=== PATIENT | female | born 1975 | race Caucasian/White ===

== ENCOUNTER 2020-11-18 11:12 | Outpatient (REF) | payer BC, SELFPAY | END 2020-11-18 11:13 | disposition home or self-care (01) | LOC: HO.LAB 11:12 | PROVIDERS: Visit Provider Internal Medicine | DX: Z20.828 Contact with and (suspected) exposure to other viral communicable diseases (principal) | CPT/HCPCS: C9803; U0003 ==

== ENCOUNTER 2023-01-01 19:02 | Emergency (ER) | payer BC, SELFPAY ==
[2023-01-01 19:13] VITALS: BP 141/81; PULSE 103; O2SAT 100
[2023-01-01 19:51] VITALS: BP 150/85; PULSE 105; RESP 18; TEMP 37; O2SAT 100; BMI 23.0
--- NOTE | 2023-01-01 19:52 | ED.GENADULT ---
HPI - General Adult General Chief complaint: Nausea/Vomiting/Diarrhea <Erendira Vazquez CNP - Last Filed: 01/01/23 19:59> Stated complaint: NAUSEA/VOMITING PER EMS <Erendira Vazquez CNP - Last Filed: 01/01/23 19:59> Time Seen by Provider: 01/01/23 22:23 <Erendira Vazquez CNP - Last Filed: 01/01/23 19:59> Source: patient, RN notes reviewed and other <Leopoldo Tran - Last Filed: 01/01/23 22:41> Mode of arrival: EMS <Leopoldo Tran - Last Filed: 01/01/23 22:41> Limitations: no limitations <Leopoldo Tran - Last Filed: 01/01/23 22:41> History of Present Illness HPI narrative: 47-year-old female past medical history significant for type 1 diabetes presents for evaluation of nausea vomiting weakness. Patient reports that she would not eat last night had a couple of drinks. She was not able to eat tacos that she ordered because they did not agree with me. She reports that she woke this morning was vomiting all day and could not tolerate any oral intake. She checked a urine test strip and was found to have too many ketones. at this time she sought medical care and called the ambulance she received IV fluids as well as antiemetic and round and she reports feeling much better on arrival the patient reports while sitting in the ER waiting room she has been able to tolerate 2 full Gatorade and feels much better she has no complaints at this time and denies any pain no fevers, chills <Leopoldo Tran - Last Filed: 01/01/23 22:41> Related Data Allergies/adverse reactions: Allergies Allergy/AdvReac Type Severity Reaction Status Date / Time No Known Allergies Allergy Unverified 01/01/23 19:56 [No Known Allergies*] <Erendira Vazquez CNP - Last Filed: 01/01/23 19:59> Review of Systems Constitutional: Constitutional: Reports as per HPI, Denies chills and Denies fatigue <Leopoldo Tran - Last Filed: 01/01/23 22:41> ENT: Denies sore throat <Leopoldo Tran - Last Filed: 01/01/23 22:41> Cardiovascular: Cardiovascular: Denies chest pain <Leopoldo Tran - Last Filed: 01/01/23 22:41> Respiratory: Respiratory: Denies cough <Leopoldo Perezy - Last Filed: 01/01/23 22:41> Gastrointestinal: Gastrointestinal: Denies constipation, Reports dyspepsia, Denies diarrhea, Reports nausea, Reports vomiting and Denies hematemesis <Leopoldo Perezy - Last Filed: 01/01/23 22:41> Genitourinary: Genitourinary: Denies dysuria <Leopoldo Tran - Last Filed: 01/01/23 22:41> Musculoskeletal: Musculoskeletal: Denies back pain, Denies myalgias and Denies arthralgias <Leopoldo Tran - Last Filed: 01/01/23 22:41> Endocrine: Endocrine: Denies fatigue <Leopoldo Tran - Last Filed: 01/01/23 22:41> [facility] Social History Social History: Social History Advance Directives: No Advance Directives Information Provided: Yes <Erendira Vazquez CNP - Last Filed: 01/01/23 19:59> Physical Exam ED Vital Signs: Vital Signs - 24 hr 01/01/23 19:51 Temperature 98.6 F Pulse Rate 105 H Respiratory Rate 18 Blood Pressure 150/85 H Pulse Oximetry 100 Oxygen Delivery Method Room Air BMI result Body Mass Index 23.0 <Erendira Vazquez STRIPPING MACHINE OPERATOR - Last Filed: 01/01/23 19:59> Vital Signs - 24 hr 01/01/23 19:51 Temperature 98.6 F Pulse Rate 105 H Respiratory Rate 18 Blood Pressure 150/85 H Pulse Oximetry 100 Oxygen Delivery Method Room Air BMI result Body Mass Index 23.0 <Leopoldo Tran - Last Filed: 01/01/23 22:41> Const General: cooperative, healthy appearing, comfortable, no acute distress, alert, awake and Physically active <Leopoldo Tran - Last Filed: 01/01/23 22:41> Nutritional Appearance: thin <Leopoldo Tran - Last Filed: 01/01/23 22:41> Orientation/consciousness: patient oriented x3 <Leopoldo Tran - Last Filed: 01/01/23 22:41> Limitations: no limitations <Leopoldo O Last Filed: 01/01/23 22:41> HENTX Head: Yes normocephalic and Yes atraumatic <Leopoldo Last Filed: 01/01/23 22:41> Face and sinus: Yes face symmetric <Leopoldo Last Filed: 01/01/23 22:41> Mouth: Normal oral and palatal mucosa present and tongue normal < Last Filed: 01/01/23 22:41> Teeth and gingiva: dentition normal <Leopoldo Last Filed: 01/01/23 22:41> Throat: Yes posterior oropharynx normal ( without erythema, tonsillar exudates or edema), No peritonsillar mass, No uvula laterally displaced and No uvular edema <Leopoldo Last Filed: 01/01/23 22:41> Neck Neck: Yes normal visual inspection, Yes full ROM, No no meningeal signs, Yes supple and No lymphadenopathy <Leopoldo Last Filed: 01/01/23 22:41> Chest Chest palpation & inspection: normal inspection of the chest, normal palpation of entire chest wall and no crepitus <Leopoldo Last Filed: 01/01/23 22:41> Resp Effort & Inspection: normal respiratory effort and able to speak in complete sentences <Leopoldo Last Filed: 01/01/23 22:41> Auscultation: clear to auscultation bilaterally <Leopoldo Last Filed: 01/01/23 22:41> Cardio Rate: regular rate <Leopoldo Last Filed: 01/01/23 22:41> Rhythm: regular rhythm < Last Filed: 01/01/23 22:41> GI Inspection: Yes normal to inspection and No distended <Leopoldo Last Filed: 01/01/23 22:41> Palpation (GI): Soft to palpation, nontender and no guarding < Last Filed: 01/01/23 22:41> Auscultation: normoactive bowel sounds <Leopoldo Tran - Last Filed: 01/01/23 22:41> Skin General skin exam: no rashes or lesions noted <Leopoldo Tran - Last Filed: 01/01/23 22:41> Neuro General: patient oriented x3 and No no meningeal signs <Leopoldo Tran - Last Filed: 01/01/23 22:41> Course Course Course Narrative: This is an RME: Additional HPI, ROS, PE not included below will be deferred to primary provider. Patient is a 47-year-old female presents to emergency department via EMS. She does endorse drinking alcohol last night, oral this morning feeling all right. Persistent nausea and vomiting all throughout today and dizziness. Reports that she tested her urine for ketones at home which was positive. She is a type 1 diabetic with insulin pump, basal rate/bolus rate based on continuous glucose monitoring. Earlier today glucose around 120s, currently around 200. Denies fevers, chest pain, shortness of breath, difficulty breathing, abdominal pain, urinary frequency, increased hunger or thirst. <Erendira Vazquez CNP - Last Filed: 01/01/23 19:59> Medications Administered Discontinued Medications Generic Name Dose Route Start Last Admin Trade Name Freq PRN Reason Stop Dose Admin Ondansetron HCl 4 mg 01/01/23 19:56 01/01/23 20:22 Ondansetron Odt 4 Mg Tab.Rapdis TRANSLINGU 01/01/23 19:57 4 mg ONCE ONE Administration <Erendira Vazquez CNP - Last Filed: 01/01/23 19:59> Medications Administered Discontinued Medications Generic Name Dose Route Start Last Admin Trade Name Freq PRN Reason Stop Dose Admin Ondansetron HCl 4 mg 01/01/23 19:56 01/01/23 20:22 Ondansetron Odt 4 Mg Tab.Rapdis TRANSLINGU 01/01/23 19:57 4 mg ONCE ONE Administration <Leopoldo Tran - Last Filed: 01/01/23 22:41> Medical Decision Making Medical Decision Making MDM Narrative: this is a 47-year-old female who woke up vomiting. Due to her history of type 1 diabetes she checked her urine for ketones and found to be positive. In the emergency room her vital signs are stable, she is mildly hypertensive at 142/85. No source of infection. Viral panel negative. She has no leukocytosis, no evidence of DKA as her anion gap is normal. blood sugar is only 156, electrolytes are within normal limits. Given the patient is well appearing, no longer symptomatic, she is stable for discharge at this time. <Leopoldo Tran - Last Filed: 01/01/23 22:41> Differential Diagnosis Differential Diagnoses: The differential diagnosis associated with the presentation includes ( DKA, starvation ketosis, dehydration, WILNER, hyperglycemia) <Leopoldo Tran - Last Filed: 01/01/23 22:41> Nausea and vomiting, resolved <Leopoldo Tran - Last Filed: 01/01/23 22:41> Lab Data MDM Lab Attestation statement: I reviewed the patient's lab results. <Leopoldo Tran - Last Filed: 01/01/23 22:41> Result Diagrams: 01/01/23 20:16 01/01/23 20:16 <Erendira Vazquez STRIPPING MACHINE OPERATOR - Last Filed: 01/01/23 19:59> Labs: Lab Results 01/01/23 01/01/23 01/01/23 Range/Units 20:12 20:12 20:16 WBC 8.8 (4.8-10.8) X10*3/uL RBC 4.14 L (4.20-5.50) X10*6/uL Hgb 13.1 (12.0-16.0) g/dl Hct 38.6 (37.0-47.0) % MCV 93.2 (80.0-98.0) fL MCH 31.6 (27.0-33.0) pg MCHC 33.9 (31.0-35.0) g/dl RDW 12.3 (11.0-16.0) % Plt Count 308 (160-400) X10*3/uL MPV 10.1 (9.4-12.3) fL Immature Gran % (Auto) 0.5 H (0.0-0.4) % Neut % (Auto) 78.7 H (45-73) % Lymph % (Auto) 12.5 L (20-40) % [place] % (Auto) 7.4 (2-11) % Eos % (Auto) 0.1 (0-4) % Baso % (Auto) 0.8 (0-2) % Lymph # (Auto) 1.1 L (1.2-4.9) X10*3/uL [place] # (Auto) 0.7 (0.1-1.2) X10*3/uL Eos # (Auto) 0.0 (0.0-0.4) X10*3/uL Baso # (Auto) 0.1 (0.0-0.2) X10*3/uL Abs Immat Gran (auto) 0.04 H (0.00-0.03) X10*3/uL Absolute Neuts (auto) 6.9 (2.0-8.3) x10*3/uL Absolute Nucleated RBC 0.000 (0.0-0.012) X10*3/uL Nucleated RBC % (auto) 0.0 (0.0-0.2) /100WBC Sodium (135-145) mmol/L Potassium (3.3-5.1) mmol/L Chloride (96-108) mmol/L Carbon Dioxide (22-29) mmol/L Anion Gap (12-20) BUN (9-16) mg/dL Creatinine (0.5-1.4) mg/dL Estim Creat Clear Calc Estimated GFR Random Glucose (60-115) mg/dL Calcium (8.4-10.2) mg/dL Total Bilirubin (0.0-1.0) mg/dL AST (5-31) U/L ALT (0-31) U/L Alkaline Phosphatase (39-117) U/L Total Protein (6.5-8.0) g/dL Albumin (3.5-5.0) g/dL Lipase (8-78) U/L Acetone, Qual (Negative) COVID-19 ([facility]) Negative (Negative) COVID-19 Clin Com See Note Influenza Type A (JAMES) Negative (Negative) Influenza Type B (JAMES) Negative (Negative) Influenza A & B Note See Note 01/01/23 Range/Units 20:16 WBC (4.8-10.8) X10*3/uL RBC (4.20-5.50) X10*6/uL Hgb (12.0-16.0) g/dl Hct (37.0-47.0) % MCV (80.0-98.0) fL MCH (27.0-33.0) pg MCHC (31.0-35.0) g/dl RDW (11.0-16.0) % Plt Count (160-400) X10*3/uL MPV (9.4-12.3) fL Immature Gran % (Auto) (0.0-0.4) % Neut % (Auto) (45-73) % Lymph % (Auto) (20-40) % [place] % (Auto) (2-11) % Eos % (Auto) (0-4) % Baso % (Auto) (0-2) % Lymph # (Auto) (1.2-4.9) X10*3/uL [place] # (Auto) (0.1-1.2) X10*3/uL Eos # (Auto) (0.0-0.4) X10*3/uL Baso # (Auto) (0.0-0.2) X10*3/uL Abs Immat Gran (auto) (0.00-0.03) X10*3/uL Absolute Neuts (auto) (2.0-8.3) x10*3/uL Absolute Nucleated RBC (0.0-0.012) X10*3/uL Nucleated RBC % (auto) (0.0-0.2) /100WBC Sodium 137 (135-145) mmol/L Potassium 3.9 (3.3-5.1) mmol/L Chloride 101 (96-108) mmol/L Carbon Dioxide 25 (22-29) mmol/L Anion Gap 15 (12-20) BUN 19 H (9-16) mg/dL Creatinine 0.85 (0.5-1.4) mg/dL Estim Creat Clear Calc 72.2 Estimated GFR > 60 Random Glucose 156 H (60-115) mg/dL Calcium 8.9 (8.4-10.2) mg/dL Total Bilirubin 1.0 (0.0-1.0) mg/dL AST 21 (5-31) U/L ALT 24 (0-31) U/L Alkaline Phosphatase 81 (39-117) U/L Total Protein 6.9 (6.5-8.0) g/dL Albumin 4.5 (3.5-5.0) g/dL Lipase 9 (8-78) U/L Acetone, Qual Negative (Negative) COVID-19 ([facility]) (Negative) COVID-19 Clin Com Influenza Type A (JAMES) (Negative) Influenza Type B (JAMES) (Negative) Influenza A & B Note <Erendira Marie George, STRIPPING MACHINE OPERATOR - Last Filed: 01/01/23 19:59> Lab Results 01/01/23 01/01/23 01/01/23 Range/Units 20:12 20:12 20:16 WBC 8.8 (4.8-10.8) X10*3/uL RBC 4.14 L (4.20-5.50) X10*6/uL Hgb 13.1 (12.0-16.0) g/dl Hct 38.6 (37.0-47.0) % MCV 93.2 (80.0-98.0) fL MCH 31.6 (27.0-33.0) pg MCHC 33.9 (31.0-35.0) g/dl RDW 12.3 (11.0-16.0) % Plt Count 308 (160-400) X10*3/uL MPV 10.1 (9.4-12.3) fL Immature Gran % (Auto) 0.5 H (0.0-0.4) % Neut % (Auto) 78.7 H (45-73) % Lymph % (Auto) 12.5 L (20-40) % [place] % (Auto) 7.4 (2-11) % Eos % (Auto) 0.1 (0-4) % Baso % (Auto) 0.8 (0-2) % Lymph # (Auto) 1.1 L (1.2-4.9) X10*3/uL [place] # (Auto) 0.7 (0.1-1.2) X10*3/uL Eos # (Auto) 0.0 (0.0-0.4) X10*3/uL Baso # (Auto) 0.1 (0.0-0.2) X10*3/uL Abs Immat Gran (auto) 0.04 H (0.00-0.03) X10*3/uL Absolute Neuts (auto) 6.9 (2.0-8.3) x10*3/uL Absolute Nucleated RBC 0.000 (0.0-0.012) X10*3/uL Nucleated RBC % (auto) 0.0 (0.0-0.2) /100WBC Sodium (135-145) mmol/L Potassium (3.3-5.1) mmol/L Chloride (96-108) mmol/L Carbon Dioxide (22-29) mmol/L Anion Gap (12-20) BUN (9-16) mg/dL Creatinine (0.5-1.4) mg/dL Estim Creat Clear Calc Estimated GFR Random Glucose (60-115) mg/dL Calcium (8.4-10.2) mg/dL Total Bilirubin (0.0-1.0) mg/dL AST (5-31) U/L ALT (0-31) U/L Alkaline Phosphatase (39-117) U/L Total Protein (6.5-8.0) g/dL Albumin (3.5-5.0) g/dL Lipase (8-78) U/L Acetone, Qual (Negative) COVID-19 ([facility]) Negative (Negative) COVID-19 Clin Com See Note Influenza Type A (JAMES) Negative (Negative) Influenza Type B (JAMES) Negative (Negative) Influenza A & B Note See Note 01/01/23 Range/Units 20:16 WBC (4.8-10.8) X10*3/uL RBC (4.20-5.50) X10*6/uL Hgb (12.0-16.0) g/dl Hct (37.0-47.0) % MCV (80.0-98.0) fL MCH (27.0-33.0) pg MCHC (31.0-35.0) g/dl RDW (11.0-16.0) % Plt Count (160-400) X10*3/uL MPV (9.4-12.3) fL Immature Gran % (Auto) (0.0-0.4) % Neut % (Auto) (45-73) % Lymph % (Auto) (20-40) % [place] % (Auto) (2-11) % Eos % (Auto) (0-4) % Baso % (Auto) (0-2) % Lymph # (Auto) (1.2-4.9) X10*3/uL [place] # (Auto) (0.1-1.2) X10*3/uL Eos # (Auto) (0.0-0.4) X10*3/uL Baso # (Auto) (0.0-0.2) X10*3/uL Abs Immat Gran (auto) (0.00-0.03) X10*3/uL Absolute Neuts (auto) (2.0-8.3) x10*3/uL Absolute Nucleated RBC (0.0-0.012) X10*3/uL Nucleated RBC % (auto) (0.0-0.2) /100WBC Sodium 137 (135-145) mmol/L Potassium 3.9 (3.3-5.1) mmol/L Chloride 101 (96-108) mmol/L Carbon Dioxide 25 (22-29) mmol/L Anion Gap 15 (12-20) BUN 19 H (9-16) mg/dL Creatinine 0.85 (0.5-1.4) mg/dL Estim Creat Clear Calc 72.2 Estimated GFR > 60 Random Glucose 156 H (60-115) mg/dL Calcium 8.9 (8.4-10.2) mg/dL Total Bilirubin 1.0 (0.0-1.0) mg/dL AST 21 (5-31) U/L ALT 24 (0-31) U/L Alkaline Phosphatase 81 (39-117) U/L Total Protein 6.9 (6.5-8.0) g/dL Albumin 4.5 (3.5-5.0) g/dL Lipase 9 (8-78) U/L Acetone, Qual Negative (Negative) COVID-19 ([facility]) (Negative) COVID-19 Clin Com Influenza Type A (JAMES) (Negative) Influenza Type B (JAMES) (Negative) Influenza A & B Note <Leopoldo Tran - Last Filed: 01/01/23 22:41> Discharge Plan Discharge Clinical Impression: Nausea & vomiting <Erendira Vazquez CNP - Last Filed: 01/01/23 19:59> Patient Disposition: Home, Self-Care <Erendira Vazquez CNP - Last Filed: 01/01/23 19:59> Instructions: Acute Nausea and Vomiting (ED) <Erendira Vazquez CNP - Last Filed: 01/01/23 19:59> Additional Instructions: take all your medications as prescribed. Continue to increase fluid intake over the next 2 days follow-up with your primary doctor and return to the ER immediately for any new or worsening symptoms <Erendira Vazquez CNP - Last Filed: 01/01/23 19:59>
[2023-01-01 20:21] LABS: MANUAL DIFF FLAG NO
[2023-01-01] MEDS: Ondansetron ODT 4 MG TAB.RAPDIS TRANSLINGU (20:22)
[2023-01-01 20:29] LABS: Basophils Absolute Auto 0.1 X10*3/uL (0.0-0.2); Basophils Percent Auto 0.8 % (0-2); Eosinophils Percent Auto 0.1 % (0-4); Hematocrit 38.6 % (37.0-47.0); Hemoglobin 13.1 g/dl (12.0-16.0); Imm Gran Abs Auto 0.04 X10*3/uL (0.00-0.03); Imm Gran Pct Auto 0.5 % (0.0-0.4); Lymphocytes Absolute Auto 1.1 X10*3/uL (1.2-4.9); Lymphocytes Percent Auto 12.5 % (20-40); Mean Corpuscular HGB Conc 33.9 g/dl (31.0-35.0); Mean Corpuscular Hemoglobin 31.6 pg (27.0-33.0); Mean Corpuscular Volume 93.2 fL (80.0-98.0); Mean Platelet Volume 10.1 fL (9.4-12.3); Monocytes Absolute Auto 0.7 X10*3/uL (0.1-1.2); Monocytes Percent Auto 7.4 % (2-11); Neutrophils Absolute Auto 6.9 x10*3/uL (2.0-8.3); Neutrophils Percent Auto 78.7 % (45-73); Platelet Count 308 X10*3/uL (160-400); Red Blood Count 4.14 X10*6/uL (4.20-5.50); Red Cell Distribution Width 12.3 % (11.0-16.0); White Blood Count 8.8 X10*3/uL (4.8-10.8)
[2023-01-01 20:42] LABS: Alanine Aminotransferase 24 U/L (0-31); Albumin Level 4.5 g/dL (3.5-5.0); Alkaline Phosphatase 81 U/L (39-117); Anion Gap 15 (12-20); Aspartate Amino Transferase 21 U/L (5-31); Blood Urea Nitrogen 19 mg/dL (9-16); Calcium 8.9 mg/dL (8.4-10.2); Carbon Dioxide 25 mmol/L (22-29); Chloride 101 mmol/L (96-108); Creatinine Clr Calc Pharmacy 72.2; Estimated Glomerular Filt Rate > 60; Glucose Random 156 mg/dL (60-115); Lipase 9 U/L (8-78); Potassium 3.9 mmol/L (3.3-5.1); Sodium 137 mmol/L (135-145); Total Protein 6.9 g/dL (6.5-8.0)
[2023-01-01 20:47] LABS: COVID-19 Test Negative (Negative); IDNOW Serial# 16C4AD1C; IDNOW Serial# BCCEAD1C; Influenza A Negative (Negative); Influenza B2 Negative (Negative)
[2023-01-01 20:54] LABS: Acetone, serum QL Negative (Negative)
[2023-01-01 22:32] VITALS: BP 142/85; PULSE 87; RESP 14; TEMP 37.3; O2SAT 100
[2023-01-01 23:03] VITALS: BP 117/67; PULSE 80; RESP 16; TEMP 37.2; O2SAT 97
--- NOTE | 2023-01-01 23:07 | PC.NURSE ---
iv removed at time of discharge. skin pwd. pt ambulatory at discharge. pt provided with discharge packet. pt verbalized understanding of discharge plan
== END 2023-01-01 23:08 | disposition home or self-care (01) ==
PROVIDERS: Nurse Practitioner Family; Emergency Provider Emergency Medicine; PCP Internal Medicine
DX: R11.2 Nausea with vomiting, unspecified (principal); Z20.822 Contact with and (suspected) exposure to COVID-19; E10.9 Type 1 diabetes mellitus without complications; Z96.41 Presence of insulin pump (external) (internal); Z79.4 Long term (current) use of insulin
CPT/HCPCS: 80053; 82009; 83690; 85025; 87502; 87635; 99283; 99284